=== PATIENT | male | born 1990 | race Two or more races ===

== ENCOUNTER 2025-10-28 18:12 | Emergency (ER) | payer BC ==
[~2025-10-28] VITALS: Ht 165.1 cm; Wt 80.6 kg
[2025-10-28] MEDS: SODIUM CHLORIDE 0.9% 1,000 ML IVB ONE (19:17)
[2025-10-28] MEDS: KETOROLAC TROMETH 30 MG/ML 1ML VIAL IV ONE ×2 (19:17→22:47)
[2025-10-28] MEDS: METOCLOPRAMIDE HCL 5MG/ml INJ 2ml VIAL IV ONE (19:17)
--- NOTE | 2025-10-28 19:19 | ED.PDOC ---
General HPI Comments 35y M who presents to the ED for chief complaint of flank pain. Pt states he has been having R sided flank pain for the past 1x hours and brought by to the ED for further evaluation. Pt states his pain is 10/10, constant, sharp in nature, non-radiating with noted exacerbation of pain with movement and no relieving factors. Pt otherwise denies any other symptoms. Chief Complaint: Flank Pain Time Seen by MD: 19:16 Reviewed notes: Medications, Allergies Allergies: Coded Allergies: NO KNOWN ALLERGIES (Unverified , 10/28/25) Home Meds Active Scripts Diclofenac Potassium (Diclofenac Potassium) 50 Mg Tab, 1 TAB PO TIDP for 10 Days, #30 TAB Prov:ALCIDES MARTINEZ MD 10/28/25 Tamsulosin Hcl (Tamsulosin Hcl) 0.4 Mg Cap, 1 CAP PO BID for 3 Days, #6 CAP 5 Refills Prov:ALCIDES MARTINEZ MD 10/28/25 Cefdinir (Cefdinir) 300 Mg Cap, 1 CAP PO BID, #14 CAP Prov:ALCIDES MARTINEZ MD 10/28/25 Information Source: Patient, Spouse Mode of Arrival: Wheelchair Brought in by: spouse Timing: Hours Past Medical History PAST MEDICAL HISTORY: Denies Surgical History: Denies all surgeries Family History Family History: Reviewed,noncontributory to illness Social History Smoker: Non-Smoker Alcohol: Denies ETOH Use Drugs: Denies Drug Use Lives In: Home Constitutional: denies: chills, diaphoresis, fatigue, fever, malaise, sweats, weakness, others EENTM: denies: blurred vision, double vision, ear bleeding, ear discharge, ear drainage, ear pain, ear ringing, eye pain, eye redness, hearing loss, mouth pain, mouth swelling, nasal discharge, nose bleeding, nose congestion, nose pain, photophobia, tearing, throat pain, throat swelling, voice changes, others Respiratory: denies: cough, hemoptysis, orthopnea, SOB at rest, shortness of breath, SOB with excertion, stridor, wheezing, others Cardiovascular: denies: chest pain, dizzy spells, diaphoresis, Dyspnea on exertion, edema, irregular heart beat, left arm pain, lightheadedness, palpitations, PND, syncope, others Gastrointestinal: denies: abdomen distended, abdominal pain, blood streaked bowels, constipated, diarrhea, dysphagia, difficulty swallowing, hematemesis, melena, nausea, poor appetite, poor fluid intake, rectal bleeding, rectal pain, vomiting, others Genitourinary: reports: flank pain; denies: burning, dysuria, frequency, hematuria, incontinence, penile discharge, penile sore, pain, testicle pain, testicle swelling, urgency, others Neurological: denies: dizziness, fainting, headache, left sided numbness, left sided weakness, numbness, paresthesia, pre-existing deficit, right sided numbness, right sided weakness, seizure, speech problems, tingling, tremors, weakness, others Musculoskeletal: denies: back pain, gout, joint pain, joint swelling, muscle pain, muscle stiffness, neck pain, others Integumetry: denies: bruises, change in color, change in hair/nails, dryness, laceration, lesions, lumps, rash, wounds, others Allergic/Immunocompromised: denies: Difficulty Healing, Frequent Infections, Hives, Itching, others Hematologic/Lymphatic: denies: anemia, blood clots, easy bleeding, easy bruising, swollen glands, others Endocrine: denies: excessive hunger, excessive sweating, excessive thirst, excessive urination, flushing, intolerance to cold, intolerance to heat, unexplained weight gain, unexplained weight loss, others Psychiatric: denies: anxiety, bipolar disorder, depression, hopeless, panic disorder, schizophrenia, sleepless, suicidal, others All Other Systems: Reviewed and Negative Physical Exam General Appearance: Obese, Severe Distress HEENT: Normal ENT Inspection, PERRL/EOMI Neck: Full Range of Motion, Non-Tender, Normal, Normal Inspection Respiratory: Chest Non-Tender, Lungs Clear, No Accessory Muscle Use, No Respiratory Distress, Normal Breath Sounds Cardiovascular: No Edema, No JVD, No Murmur, No Gallop, Normal Peripheral Pulses, Regular Rate/Rhythm Breast Exam: Deferred Gastrointestinal: No Organomegaly, No Pulsatile Mass, Normal Bowel Sounds, Soft, Tenderness, Other (Severe right flank tenderness) Genitalia: Deferred Pelvic: Deferred Rectal: Deferred Extremities: No calf tenderness, Normal capillary refill, Normal inspection, Normal range of motion, Non-tender, No pedal edema Neurologic: Alert, distribution associate II-XII nml as Tested, No Motor Deficits, Normal Affect, Normal Mood, No Sensory Deficits Cerebellar Function: Normal Reflexes: Normal Skin: Dry, Normal Color, Warm Peripheral Pulses: 1+ carotid (R), 1+ carotid (L) Lymphatic: No Adenopathy Was a procedure done? Was a procedure done?: No Differential Diagnosis Kidney stone (Female): N/A Kidney stone (Male): Cholelithiasis, Pyelonephritis, Strain, Urinary obstruction, Urolithiasis, Urinary tract infection, Other (hydronephrosis) Penile/Scrotal: UTI, Urolithiasis Urinary Problem (Male): Urolithiasis, UTI Urinary Problem (Female): N/A X-Ray, Labs, Meds, VS Vital Signs Date Time Temp Pulse Resp B/P (MAP) Pulse Ox O2 Delivery O2 Flow Rate FiO2 10/28/25 18:30 74 20 121/80 (94) 99 10/28/25 18:14 97.5 62 20 103/71 97 97.5 Lab Test 10/28/25 19:35 Range/Units White Blood Count 14.0 H 4.4-10.8 10^3/uL Red Blood Count 5.78 4.5-5.90 10^6/uL Hemoglobin 16.8 13.5-17.5 g/dL Hematocrit 48.5 41.0-53.0 % Mean Corpuscular Volume 83.9 80.0-100.0 fL Mean Corpuscular Hemoglobin 29.0 28.0-32.0 pg Mean Corpuscular Hemoglobin Concent 34.6 32.0-36.0 g/dL Red Cell Distribution Width 13.3 11.8-14.3 % Platelet Count 384 140-450 10^3/uL Mean Platelet Volume 6.7 L 6.9-10.8 fL Neutrophils (%) (Auto) 85.8 H 37.0-80.0 % Lymphocytes (%) (Auto) 8.5 L 10.0-50.0 % Monocytes (%) (Auto) 5.2 0.0-12.0 % Eosinophils (%) (Auto) 0.1 0.0-7.0 % Basophils (%) (Auto) 0.4 0.0-2.0 % Neutrophils # (Auto) 12.0 H 1.6-8.6 10 ^3/uL Lymphocytes # (Auto) 1.2 0.4-5.4 10 ^3/uL Monocytes # (Auto) 0.7 0-1.3 10 ^3/uL Eosinophils # (Auto) 0 0-0.8 10 ^3/uL Basophils # (Auto) 0.1 0-0.2 10 ^3/uL Nucleated Red Blood Cells 0.1 % Sodium Level 141 136-145 mmol/L Potassium Level 3.5 3.5-5.1 mmol/L Chloride Level 107 98-107 mmol/L Carbon Dioxide Level 22 20-31 mmol/L Anion Gap 12 5-15 Blood Urea Nitrogen 9 9-23 mg/dL Creatinine 1.26 0.700-1.30 mg/dL Glomerular Filtration Rate Calc 76 >90 mL/min BUN/Creatinine Ratio 7.1 L 10.0-20.0 Serum Glucose 119 H 74-106 mg/dL Calcium Level 9.4 8.7-10.4 mg/dL Current Medications Medications (Trade) Dose Ordered Sig/Doug Route Start Time Stop Time Status Last Admin Metoclopramide HCl (Reglan Injection) 10 mg ONCE ONCE IV 10/28/25 19:00 10/28/25 19:01 DC 10/28/25 19:17 Sodium Chloride 1,000 ml @ 1,000 mls/hr Q1H ONCE IVB 10/28/25 19:00 10/28/25 19:59 DC 10/28/25 19:17 Ketorolac Tromethamine (Toradol Injection) 30 mg ONCE ONCE IV 10/28/25 19:00 10/28/25 19:01 DC 10/28/25 19:17 [place] [id number] Ph: [phone] DIAGNOSTIC IMAGING Diagnostic Imaging Report : [id number] Signed PATIENT: FIDENCIO BORJAS ACCT: [id number] UNIT: [id number] : 1990 LOC: ER ROOM / BED: / AGE / SEX: 35 / M ADM STATUS: REG ER SERVICE [id number] ORDERING PHYSICIAN: ALCIDES MARTINEZ MD PROCEDURE(s): ABPL - CT AB PEL WO CON-NO ORAL OR IV REASON: Kidney stone ORDER NUMBER(s): [id number], ACCESSION NUMBER(s): [id number] EXAM: CT CT AB PEL WO CON-NO ORAL OR IV History: Kidney stone Comparison Study: None TECHNIQUE: Multidetector CT of the abdomen AND PELVIS without IV contrast. Axial, coronal and sagittal multiplanar reformats were obtained from the axial data set by the technologist. Radiation Dose Information: CT Dose: CTDI volume is 20.52 mGy. Dose-length product is 1067.72 mGy*cm FINDINGS: The lung bases are clear. Partially visualized heart is unremarkable. Liver, spleen, gallbladder, pancreas and adrenal glands unremarkable. 2 mm obstructing calculus of the right proximal ureter causing minimal right- sided Hydronephrosis. The left kidney is unremarkable. Limited evaluation of the urinary bladder due to decompressed state. Prostate is unremarkable. Mild wall thickening of the distal esophagus. Stomach is unremarkable. Small bowel loops unremarkable. Appendix is unremarkable. Mild distal rectal wall thickening which is most likely from inadequate distention. Otherwise, the large bowel is unremarkable. No evidence of intraperitoneal free air or free fluid. No aortic aneurysm. No significant lymphadenopathy. Small fat containing bilateral inguinal hernias. Tiny fat containing umbilical hernia. Minimal body wall edema. No evidence of acute osseous abnormalities. IMPRESSION: 2 mm obstructing right proximal ureteral calculus causing minimal right-sided Hydronephrosis. Mild distal rectal wall thickening which is most likely from inadequate distention with mild proctitis not excluded. Mild wall thickening of the distal esophagus. Correlate for mild esophagitis. ATED BY: BRANDI LAST DO DICTATED DATE/TIME: 10/28/251935 SIGNED BY: BRANDI LAST DO SIGNED DATE/TIME: 10/28/251935 CC: X-Ray, Labs, Meds, VS Comment Course in the emergency department patient came in with severe right flank pain sudden onset this afternoon with nausea and vomiting CT of the abdomen shows a 2 mm right the proximal ureter with hydronephrosis and also is a pharyngitis [place] [address] with a 85.8% neutrophils and a normal H&H BNP normal Patient has been hydrated and medicated we will be discharged room to follow up with his PCP Time of 1ST Reevaluation: 19:50 Reevaluation 1ST: Unchanged Time of 2ND Reevaluation: 20:15 Reevaluation 2ND: Improved Consultation: PCP Patient Education/Counseling: Diagnosis, Treatment, Prognosis, Need For Follow Up Family Education/Counseling: Diagnosis, Treatment, Prognosis, Need For Follow Up, Other (Spouse has been signs) SEPSIS Sepsis Screen Date sepsis recognized/suspect: Oct 28, 2025 Time Sepsis recognized/suspect: 1815 Recent Procedure: No On Antibiotic Therapy: No Respiratory Rate >20: No Heart Rate >90: No Temp<36 C (96.8 F) or >38.3 C: No SBP <90 or MAP <65 mmHG: No New Acute Mental Status Change: No Is the patient on CPAP, BIPAP,: No Physician Orders Ct Ab Pel Wo Con-No Oral Or Iv (10/28/25 18:59) Heplock Iv (10/28/25 18:59) Vital Signs Date Time Temp Pulse Resp B/P (MAP) Pulse Ox O2 Delivery O2 Flow Rate FiO2 10/28/25 18:30 74 20 121/80 (94) 99 10/28/25 18:14 97.5 62 20 103/71 97 97.5 Laboratory Tests Test 10/28/25 19:35 White Blood Count 14.0 10^3/uL (4.4-10.8) H Medications Medications Dose Ordered Sig/Doug Route Start Time Stop Time Status Last Admin Dose Admin Ketorolac Tromethamine 30 mg ONCE ONCE IV 10/28/25 19:00 10/28/25 19:01 DC 10/28/25 19:17 Metoclopramide HCl 10 mg ONCE ONCE IV 10/28/25 19:00 10/28/25 19:01 DC 10/28/25 19:17 Sodium Chloride 1,000 ml @ 1,000 mls/hr Q1H ONCE IVB 10/28/25 19:00 10/28/25 19:59 DC 10/28/25 19:17 Departure 1 Departure Time of Disposition: 20:16 Impression: Primary Impression: Hydronephrosis concurrent with and due to calculi of kidney and ureter Disposition: 01 HOME / SELF CARE / HOMELESS Condition: Fair Additional Instructions: Push fluids and follow up with your PCP e-Prescriptions Diclofenac Potassium (Diclofenac Potassium) 50 Mg Tab 1 TAB PO TIDP for 10 Days, #30 TAB Prov: ALCIDES MARTINEZ MD 10/28/25 Tamsulosin Hcl (Tamsulosin Hcl) 0.4 Mg Cap 1 CAP PO BID for 3 Days, #6 CAP 5 Refills Prov: ALCIDES MARTINEZ MD 10/28/25 Cefdinir (Cefdinir) 300 Mg Cap 1 CAP PO BID, #14 CAP Prov: ALCIDES MARTINEZ MD 10/28/25 Discharged With: Self, Spouse Critical Care Note Critical Care Time?: No Stability Stability form required: No Heart Score Heart Score: Heart Score Response (Comments) Value History N/A 0 EKG N/A 0 Age <45 0 Risk Factors No known risk factors 0 Troponin N/A 0 Total 0 I personally scribed for ALCIDES MARTINEZ MD ([email or web address]) on 10/28/25 at 19:19. Electronically submitted by Karlos Carroll ([employer]). I personally scribed for ALCIDES MARTINEZ MD ([email or web address]) on 10/28/25 at 19:44. Electronically submitted by Karlos Carroll ([employer]). ALCIDES MARTINEZ MD Oct 28, 2025 19:19
--- NOTE | 2025-10-28 19:38 | DVH ---
EXAM: CT CT AB PEL WO CON-NO ORAL OR IV History: Kidney stone Comparison Study: None TECHNIQUE: Multidetector CT of the abdomen AND PELVIS without IV contrast. Axial, coronal and sagittal multiplanar reformats were obtained from the axial data set by the technologist. Radiation Dose Information: CT Dose: CTDI volume is 20.52 mGy. Dose-length product is 1067.72 mGy*cm FINDINGS: The lung bases are clear. Partially visualized heart is unremarkable. Liver, spleen, gallbladder, pancreas and adrenal glands unremarkable. 2 mm obstructing calculus of the right proximal ureter causing minimal right- sided Hydronephrosis. The left kidney is unremarkable. Limited evaluation of the urinary bladder due to decompressed state. Prostate is unremarkable. Mild wall thickening of the distal esophagus. Stomach is unremarkable. Small bowel loops unremarkable. Appendix is unremarkable. Mild distal rectal wall thickening which is most likely from inadequate distention. Otherwise, the large bowel is unremarkable. No evidence of intraperitoneal free air or free fluid. No aortic aneurysm. No significant lymphadenopathy. Small fat containing bilateral inguinal hernias. Tiny fat containing umbilical hernia. Minimal body wall edema. No evidence of acute osseous abnormalities. IMPRESSION: 2 mm obstructing right proximal ureteral calculus causing minimal right-sided Hydronephrosis. Mild distal rectal wall thickening which is most likely from inadequate distention with mild proctitis not excluded. Mild wall thickening of the distal esophagus. Correlate for mild esophagitis.
[2025-10-28 19:51] LABS: Hematocrit 48.5 % (41.0-53.0); Hemoglobin 16.8 g/dL (13.5-17.5); Mean Corpuscular Hemoglobin 29.0 pg (28.0-32.0); Mean Corpuscular Volume 83.9 fL (80.0-100.0); Nucleated Red Blood Cells % 0.1 %
[2025-10-28 19:56] LABS: Sodium 141 mmol/L (136-145)
[2025-10-28 19:57] LABS: Anion Gap 12 (5-15); Carbon Dioxide 22 mmol/L (20-31)
[2025-10-28 19:58] LABS: Calcium 9.4 mg/dL (8.7-10.4)
[2025-10-28 20:02] LABS: BUN/Creatinine Ratio 7.1 (10.0-20.0); Blood Urea Nitrogen 9 mg/dL (9-23)
[2025-10-28 20:13] LABS: Chloride 107 mmol/L (98-107); Glucose 119 mg/dL (74-106); Potassium 3.5 mmol/L (3.5-5.1)
[2025-10-28] MEDS ORDERED: DICL50TA2 PO (20:20)
[2025-10-28] MEDS ORDERED: TAMS-35 PO (20:20)
[2025-10-28] MEDS ORDERED: CEFD300C2 PO (20:20)
[2025-10-28] MEDS ORDERED: TAMS0.4C39 PO (20:41)
[2025-10-28 22:35] VITALS: BP 116/62; TEMP 98.4
[2025-10-28 22:36] VITALS: PULSE 70; RESP 18; O2SAT 98
[2025-10-28] MEDS: TAMSULOSIN HYDROCHLORIDE 0.4 MG CAP PO ONE (22:47)
== END 2025-10-28 22:52 | disposition home or self-care (01) ==
LOC: ER 18:12
DX: N13.2 Hydronephrosis with renal and ureteral calculous obstruction (principal)
CPT/HCPCS: 36415; 74176; 80048; 85025; 96361; 96374; 96375; 96376; 99285; J1885; J2765; J7030